=== PATIENT | female | born 1990 | race Two or more races ===

== ENCOUNTER 2019-12-18 20:34 | Emergency (ER) | payer MEDICAID, OTHER ==
[~2019-12-18] VITALS: Ht 162.6 cm; Wt 60.8 kg
[2019-12-18] MEDS ORDERED: MIDAZOLAM HCL 2 MG/2ML VIAL ONE (20:40)
[2019-12-18] MEDS ORDERED: HALOPERIDOL LACTATE INJ 5 MG/ML VIAL ONE (20:40)
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
[2019-12-18] MEDS ORDERED: HALOPERIDOL LACTATE INJ 5 MG/ML VIAL IM ONE (21:00)
[2019-12-18] MEDS ORDERED: MIDAZOLAM HCL 2 MG/2ML VIAL IM ONE (21:00)
--- NOTE | 2019-12-18 21:09 | NUR ---
TK LEFT THE PT. PER THEM, "PT IS NOT IN CUSTODY ANYMORE"
[2019-12-18] MEDS ORDERED: LIDOCAINE 1%-EPI 1:100,000 20 ML VIAL ONE (21:33)
--- NOTE | 2019-12-18 21:40 | NUR ---
DR RIOJAS AT BEDSIDE FOR LAC REPAIR
[2019-12-18] MEDS ORDERED: TDAP [DIPH/PERTUSSIS/TET] 0.5 ML VIAL IM ONE ×2 (22:30→23:26)
[2019-12-18 22:44] LABS: BASOPHILS # (AUTO) 0.1 /CMM (0.0-0.2); BASOPHILS % (AUTO) 1.2 % (0.0-2.0); EOSINOPHILS % (AUTO) 2.6 % (0.0-6.0); HEMATOCRIT 41 % (33-45); HEMOGLOBIN 13.7 g/dL (11.5-14.8); LYMPHOCYTES # (AUTO) 1.4 /CMM (0.8-4.8); LYMPHOCYTES % (AUTO) 29.6 % (20.0-44.0); MEAN CORPUSCULAR HGB CONC 33 g/dl (31.0-36.0); MEAN CORPUSCULAR VOLUME 91 fL (82-100); MONOCYTES # (AUTO) 0.3 /CMM (0.1-1.30); MONOCYTES % (AUTO) 6.2 % (2.0-12.0); NEUTROPHILS # (AUTO) 2.9 /CMM (1.8-8.9); NEUTROPHILS % (AUTO) 60.4 % (43.0-81.0); PLATELET COUNT (AUTO) 212 /CMM (150-450); WHITE BLOOD COUNT (AUTO) 4.8 K/uL (4.3-11.0)
[2019-12-18 22:52] LABS: CALCIUM, SERUM 8.3 mg/dL (8.5-10.1); CREATININE 0.6 mg/dL (0.6-1.3); POTASSIUM 3.3 mmol/L (3.5-5.1)
[2019-12-18 23:03] LABS: ALBUMIN 3.7 g/dL (3.4-5.0); BILIRUBIN,DIRECT 0.1 mg/dL (0.0-0.2); BILIRUBIN,TOTAL 0.2 mg/dL (0.2-1.0); TOTAL PROTEIN, SERUM 6.7 g/dL (6.4-8.2)
[2019-12-18 23:22] LABS: SALICYLATE 0.7 mg/dL (2.8-20.0)
--- NOTE | 2019-12-19 02:05 | NUR ---
URINE COLLECTED AND SENT TO LAB
--- NOTE | 2019-12-19 02:12 | NUR ---
PT A/OX3. NO SIGNS OF DISTRESS NOTED. WILL CONT TO MONITOR PT.
[2019-12-19 02:29] LABS: APPEARANCE,URINE CLEAR (CLEAR); BILIRUBIN,URINE NEGATIVE (NEGATIVE); BLOOD, URINE TRACE-INTA Ery/uL (NEGATIVE); COLOR,URINE YELLOW (YELLOW); KETONES,URINE NEGATIVE (NEGATIVE); LEUKOCYTE ESTERASE ,URINE NEGATIVE (NEGATIVE); NITRITE, URINE NEGATIVE (NEGATIVE); PROTEIN,URINE NEGATIVE (NEGATIVE); UGLUCOSE NEGATIVE (NEGATIVE); UROBILINOGEN,URINE 0.2 EU/dL (0.2)
[2019-12-19 02:38] LABS: BACTERIA,URINE None seen /HPF (None Seen); RBC,URINE 0-2 /HPF (0-2); SQUAMOUS EPITHELIAL CELL,UR Few /HPF (None Seen); WBC,URINE 0-2 /HPF (0-3)
--- NOTE | 2019-12-19 04:06 | NUR ---
pt awake and alert. reported feeling well and willing to leave. made aware . will cont to monitor the pt mean while
[2019-12-19 05:32] VITALS: BP 129/69
--- NOTE | 2019-12-19 05:32 | NUR ---
Patient discharged to home in stable condition. Written and verbal after care instructions given. Patient verbalizes understanding of instruction.
== END 2019-12-19 05:32 | disposition home or self-care (01) ==
LOC: ER 20:36 → EDBD 20:36 → ER 12-19 05:32
DX: S51.811A Laceration without foreign body of right forearm, initial encounter (principal); R46.1 Bizarre personal appearance; X58.XXXA Exposure to other specified factors, initial encounter; Y93.89 Activity, other specified; Y92.89 Other specified places as the place of occurrence of the external cause; Y99.8 Other external cause status
CPT/HCPCS: 12004; 36415; 80048; 80076; 80305; 80307; 80329; 81001; 85025; 90471; 90715; 96372 ×2; 99291; G0480; J1630; J2250; J3490; 81000-TC

== ENCOUNTER 2020-03-26 23:24 | Emergency (ER) | payer MEDICAID ==
[~2020-03-26] VITALS: Ht 160 cm; Wt 49.9 kg
--- NOTE | 2020-03-26 23:51 | NUR ---
BROUGHT BY RADIOLGY TO CT
--- NOTE | 2020-03-27 01:09 | NUR ---
pt cleared for discharge per dr. antonio. Patient discharged to home in stable condition. Written and verbal after care instructions given. Patient verbalizes understanding of instruction.
[2020-03-27 01:10] VITALS: BP 132/78
== END 2020-03-27 01:12 | disposition home or self-care (01) ==
LOC: ER 23:26
DX: S09.8XXA Other specified injuries of head, initial encounter (principal); R94.31 Abnormal electrocardiogram [ECG] [EKG]; W19.XXXA Unspecified fall, initial encounter; Y93.89 Activity, other specified; Y92.89 Other specified places as the place of occurrence of the external cause; Y99.8 Other external cause status
CPT/HCPCS: 70450-TC

== ENCOUNTER 2020-09-02 15:10 | Emergency (ER) | payer MEDICAID ==
[~2020-09-02] VITALS: Ht 160 cm; Wt 45.4 kg
--- NOTE | 2020-09-02 15:30 | NUR ---
urine collected and sent to lab
[2020-09-02] MEDS ORDERED: TDAP [DIPH/PERTUSSIS/TET] 0.5 ML VIAL IM ONE ×2 (15:39→16:00)
--- NOTE | 2020-09-02 15:43 | NUR ---
CALLED [facility] [address] A UNIT WILL BE DISPATCHED TO ER
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
--- NOTE | 2020-09-02 16:51 | NUR ---
[employer] at bedside speaking to patient.
--- NOTE | 2020-09-02 16:51 | NUR ---
TK ARRIVED TO GET REPORT FROM PT.
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
[2020-09-02] MEDS ORDERED: LIDOCAINE /MPF 1% VIAL 5 ML VIAL ONE (17:07)
[2020-09-02] MEDS ORDERED: IBUP-1955 PO (17:14)
[2020-09-02 18:11] VITALS: BP 135/84
--- NOTE | 2020-09-02 18:11 | NUR ---
Patient discharged to home in stable condition. Written and verbal after care instructions given. Patient verbalizes understanding of instruction. Pt ambulatory with a steady gait
== END 2020-09-02 18:12 | disposition home or self-care (01) ==
LOC: ER 15:14
DX: S01.81XA Laceration without foreign body of other part of head, initial encounter (principal); S61.012A Laceration without foreign body of left thumb without damage to nail, initial encounter; Y08.89XA Assault by other specified means, initial encounter; Y93.89 Activity, other specified; Y92.89 Other specified places as the place of occurrence of the external cause; Y99.8 Other external cause status
CPT/HCPCS: 12002; 12013; 70450; 84703; 90471; 90715; 99284; A6403 ×3; J3490

== ENCOUNTER 2022-03-24 02:08 | Emergency (ER) | payer MEDICAID ==
[~2022-03-24] VITALS: Ht 160 cm; Wt 54.4 kg
[~2022-03-24 02:08] MED LIST: IBUP-1955 PO
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
[2022-03-24] MEDS ORDERED: LIDOCAINE 1%-EPI 1:100,000 20 ML VIAL ONE (02:27)
--- NOTE | 2022-03-24 02:28 | NUR ---
EMT AT PT'S BEDSIDE TO IRRIGATE LAC TO PT'S SCALP
[2022-03-24] MEDS ORDERED: LIDOCAINE 1%-EPI 1:100,000 20 ML VIAL TP ONE (02:30)
--- NOTE | 2022-03-24 03:14 | NUR ---
Patient discharged to home in stable condition. Written and verbal after care instructions given. Patient verbalizes understanding of instruction. PT ambulatory with a steady gait
[2022-03-24 03:23] VITALS: BP 138/78
== END 2022-03-24 03:25 | disposition home or self-care (01) ==
LOC: ER 02:10
DX: S01.01XA Laceration without foreign body of scalp, initial encounter (principal); Z60.2 Problems related to living alone; Z79.1 Long term (current) use of non-steroidal anti-inflammatories (NSAID); Y08.89XA Assault by other specified means, initial encounter; Y93.89 Activity, other specified; Y92.89 Other specified places as the place of occurrence of the external cause; Y99.8 Other external cause status
CPT/HCPCS: 99282; 12001; A6403; J3490

== ENCOUNTER 2022-06-15 21:42 | Emergency (ER) | payer MEDICAID ==
[~2022-06-15] VITALS: Ht 160 cm; Wt 53.5 kg
[2022-06-15 22:12] VITALS: BP 133/97
[2022-06-15] MEDS ORDERED: CEFTRIAXONE 500 MG VIAL ONE (22:31)
[2022-06-15] MEDS: CEFTRIAXONE 500 MG VIAL IM ONE (22:37)
[2022-06-15] MEDS ORDERED: DOXY100T2 PO (23:01)
[2022-06-15] MEDS ORDERED: METR500T PO (23:01)
[2022-06-15 23:24] LABS: BILIRUBIN,URINE NEGATIVE (NEGATIVE); COLOR,URINE YELLOW (YELLOW); LEUKOCYTE ESTERASE ,URINE TRACE (NEGATIVE); NITRITE, URINE NEGATIVE (NEGATIVE); PH,URINE 6.5 (5.0-8.0); PROTEIN,URINE NEGATIVE (NEGATIVE); UGLUCOSE NEGATIVE (NEGATIVE); UROBILINOGEN,URINE 0.2 EU/dL (0.2)
[2022-06-15 23:25] LABS: BACTERIA,URINE None seen /HPF (None Seen); RBC,URINE 0-2 /HPF (0-2); SQUAMOUS EPITHELIAL CELL,UR Few /HPF (None Seen); WBC,URINE 0-2 /HPF (0-3)
== END 2022-06-16 00:43 | disposition home or self-care (01) ==
LOC: ER 21:45
DX: N89.8 Other specified noninflammatory disorders of vagina (principal); Z60.2 Problems related to living alone; Z79.899 Other long term (current) drug therapy
CPT/HCPCS: 99284; 96372; 84703; 81001; 87210; 87491; 87591; J0696

== ENCOUNTER 2022-11-03 17:37 | Emergency (ER) | payer MEDICAID ==
[~2022-11-03] VITALS: Ht 160 cm; Wt 52.2 kg
[~2022-11-03 17:37] MED LIST changes: +DOXY100T2 PO; +METR500T PO
--- NOTE | 2022-11-03 17:50 | NUR ---
C/O VAGINAL DISCHARGE AND FOUL ODOR SINCE X 3 DAYS
--- NOTE | 2022-11-03 18:00 | NUR ---
AT BEDSIDE FOR EVAL
[2022-11-03] MEDS ORDERED: METR-147 PO (18:12)
--- NOTE | 2022-11-03 18:23 | NUR ---
Patient discharged to home in stable condition. Written and verbal after care instructions given. Patient verbalizes understanding of instruction.
[2022-11-03 18:24] VITALS: BP 141/81
== END 2022-11-03 18:25 | disposition home or self-care (01) ==
LOC: ER 17:39
DX: N76.0 Acute vaginitis (principal); Z79.899 Other long term (current) drug therapy; Z60.2 Problems related to living alone

== ENCOUNTER → 2023-02-19 | Emergency (ER) | payer MEDICAID ==
[~2023-02-19] VITALS: Ht 160 cm; Wt 52.2 kg
[~2023-02-19] MED LIST changes: +METR-147 PO; +NITR100C6 PO; +NITROFURANTOIN/MONOHYDRATE MACROCRYSTALS 100 MG CAPSULE PO ONE
[2023-02-20 00:19] LABS: APPEARANCE,URINE CLEAR (CLEAR); BILIRUBIN,URINE NEGATIVE (NEGATIVE); BLOOD, URINE TRACE-INTA Ery/uL (NEGATIVE); COLOR,URINE YELLOW (YELLOW); KETONES,URINE NEGATIVE (NEGATIVE); LEUKOCYTE ESTERASE ,URINE 1+ (NEGATIVE); NITRITE, URINE POSITIVE (NEGATIVE); PROTEIN,URINE NEGATIVE (NEGATIVE); UGLUCOSE NEGATIVE (NEGATIVE); UROBILINOGEN,URINE 0.2 EU/dL (0.2)
[2023-02-20 00:20] LABS: ADD URINE CULTURE YES; BACTERIA,URINE Few /HPF (None Seen); SQUAMOUS EPITHELIAL CELL,UR Rare /HPF (None Seen)
[2023-02-20 00:49] VITALS: BP 133/97; TEMP 98.3; O2SAT 98
== END | disposition home or self-care (01) ==
LOC: ER 22:28
DX: N39.0 Urinary tract infection, site not specified (principal); Z60.2 Problems related to living alone
CPT/HCPCS: 81001; 87086-TC; 87110-TC; 87210-TC

== ENCOUNTER 2023-03-02 21:54 | Emergency (ER) | payer MEDICAID ==
[~2023-03-02] VITALS: Ht 160 cm; Wt 53.1 kg
[~2023-03-02 21:54] MED LIST changes: -NITROFURANTOIN/MONOHYDRATE MACROCRYSTALS 100 MG CAPSULE PO ONE
[2023-03-02 22:46] VITALS: BP 140/82; TEMP 98.4; O2SAT 98
[2023-03-02 23:21] LABS: APPEARANCE,URINE CLEAR (CLEAR); BILIRUBIN,URINE NEGATIVE (NEGATIVE); BLOOD, URINE TRACE-INTA Ery/uL (NEGATIVE); COLOR,URINE YELLOW (YELLOW); KETONES,URINE 1+ mg/dL (NEGATIVE); LEUKOCYTE ESTERASE ,URINE TRACE (NEGATIVE); NITRITE, URINE NEGATIVE (NEGATIVE); PROTEIN,URINE NEGATIVE (NEGATIVE); UGLUCOSE NEGATIVE (NEGATIVE); UROBILINOGEN,URINE 0.2 EU/dL (0.2)
[2023-03-02 23:29] LABS: ADD URINE CULTURE NO; BACTERIA,URINE Rare /HPF (None Seen); SQUAMOUS EPITHELIAL CELL,UR Rare /HPF (None Seen)
[2023-03-02 23:38] LABS: PREGNANCY TEST URINE QUAL NEGATIVE (NEGATIVE)
[2023-03-03] MEDS ORDERED: METR-147 PO ×2 (00:32→00:48)
== END 2023-03-03 01:01 | disposition home or self-care (01) ==
LOC: ER 21:58
DX: N76.0 Acute vaginitis (principal); Z60.2 Problems related to living alone
CPT/HCPCS: 81001; 84703-TC; 87210-TC

== ENCOUNTER 2023-08-29 05:51 | Emergency (ER) | payer BC, MEDICAID ==
[~2023-08-29] VITALS: Ht 160 cm; Wt 54.4 kg
[2023-08-29 07:49] LABS: APPEARANCE,URINE CLEAR (CLEAR); BILIRUBIN,URINE NEGATIVE (NEGATIVE); BLOOD, URINE NEGATIVE Ery/uL (NEGATIVE); COLOR,URINE YELLOW (YELLOW); KETONES,URINE NEGATIVE (NEGATIVE); LEUKOCYTE ESTERASE ,URINE NEGATIVE (NEGATIVE); NITRITE, URINE NEGATIVE (NEGATIVE); PROTEIN,URINE NEGATIVE (NEGATIVE); UGLUCOSE NEGATIVE (NEGATIVE); UROBILINOGEN,URINE 0.2 EU/dL (0.2)
[2023-08-29] MEDS ORDERED: METR500T PO (09:38)
[2023-08-29 10:13] VITALS: BP 122/78; TEMP 98; O2SAT 99
[2023-09-01 00:07] LABS: CHLAMYDIA TRACHOMATIS NAA Negative (Negative); NEISSERIA GONORRHOEAE NAA Negative (Negative)
== END 2023-08-29 10:14 | disposition home or self-care (01) ==
LOC: ER 05:55
DX: N76.0 Acute vaginitis (principal); Z60.2 Problems related to living alone
CPT/HCPCS: 87210-TC; 87491; 87591